=== PATIENT | male | born 1990 | race Caucasian/White ===

== ENCOUNTER 2019-01-25 15:45 | Emergency (ER) | payer SELFPAY ==
--- NOTE | 2019-01-25 15:48 | ED Physician Documentation ---
Low Back Pain - HISTORIAN Historian: patient - HPI Stated Complaint: low back pain Chief Complaint: Low Back Pain/ Injury History: back pain Onset: days ago (30) Duration: continues in ED Recent Injury: No Where: work (first pain) Other Injuries: back Severity: moderate Quality: similar- prior back pain (muscle pain he states ) Associated Symptoms: denies: fever, chills, sweating, constipation, incontinence, nausea, vomiting, problems urinating, difficulty walking, light- headedness, dizziness, numbness, weakness Worsened By:: movement to RT flexion, movement to LT flexion Relieved By: nothing Further Comments: yes (he states about one month ago he had back pain at work. He notes that he was treated at [place] and the CT per his report showed muscle strain. He has had no new injury and pain is the same he is almost out of flexeril. When he was taking the flexeril regularly he was having less pain. He has no loss of control of bowel or bladder. He does have narcotic pain meds at home. He did try OTC ibuprofen today) - ROS CONST: no problems - PAST HX Past History: back pain Allergies/Adverse Reactions: Allergies Allergy/AdvReac Type Severity Reaction Status Date / Time codeine Allergy No Reaction Verified 01/25/19 16:00 Home Medications: Ambulatory Orders Medication Instructions Recorded Cyclobenzaprine HCl [Flexeril] 10 mg PO TID PRN 01/25/19 - SOCIAL HX Smoking History: non-smoker Alcohol Use: none Drug Use: marijuana - FAMILY HX Family History: none - VITAL SIGNS Vital Signs: Vital Signs Temp Pulse Resp BP Pulse Ox 104/66 09/30/18 20:25 - REVIEWED ASSESSMENTS Nursing Assessment Reviewed: Yes Vitals Reviewed: Yes Progress - Progress Progress: 1604: Discussed with pt this is a current treatment and next step would be follow up with PCP and possible MRI. He is aware. No new injury no new symptoms. He is almost out of his flexeril DG Low Back Pain/Injury - Physical Exam General Appearance: no acute distress, alert EENT: eye inspection normal Neck: non-tender Resp/CVS: chest non-tender, breath sounds nml, heart sounds nml, no resp. distress, lungs clear, reg. rate & rhythm Abdomen: non-tender Back: muscle spasm (tenderness bilaterally lower back no radiation ) Straight Leg Raising: Negative Left, Negative Right Neuro/Psych: oriented x3 Skin: warm/dry, normal color Extremities: non-tender Discharge Clincal Impression: Low back pain Qualifiers: Chronicity: acute Back pain laterality: bilateral Sciatica presence: without sciatica Qualified Code(s): M54.5 - Low back pain Referrals: Primary Doctor,No [Primary Care Provider] - 2 Days Comments: 1. OTC meds as directed as needed for low back pain 2. Flexeril 10 mg take 1 by mouth every 8 hours as needed for pain 3. Follow Up with a PCP for management of pain 4. Return to ER for any increased concerns referral to pain DG Condition: Stable Disposition: 01 HOME, SELF-CARE Decision to Admit: NO Date of Decison to Admit: 01/25/19 Decision Time: 16:11
[2019-01-25 16:07] VITALS: BP 117/76
== END 2019-01-25 16:13 | disposition home or self-care (01) ==
LOC: ED 15:45
DX: M54.41 Lumbago with sciatica, right side (principal); M54.42 Lumbago with sciatica, left side
CPT/HCPCS: 99282; 99283

== ENCOUNTER 2019-03-30 19:51 | Emergency (ER) | payer SELFPAY ==
[2019-03-30 20:31] VITALS: BP 123/71
[2019-03-30] MEDS ORDERED: CYCLOBENZAPRINE HCL 10 MG TABLET PO ONE (20:35)
--- NOTE | 2019-03-30 20:37 | ED Physician Documentation ---
Low Back Pain - HISTORIAN Historian: patient - HPI Stated Complaint: Left back pain Chief Complaint: Low Back Pain/ Injury History: back pain (for 3 weeks) Duration: continues in ED Recent Injury: Yes (injured at work, concrete work) Context: lifting Where: work Other Injuries: other (none) Severity: moderate Quality: other (aching, throbbing) Associated Symptoms: denies: fever, chills Worsened By:: denies: other (movement. Has been lying on couch for week and a half. Ibuprofen 600 mg q7-8 hours. Seen twice at [facility] with x-rays and meds. Seen at urgent care, all with diagnosis of muscle strain. Fired from job. ) - ROS CONST: no problems MS/SKIN/LYMPH: back pain - PAST HX Past History: other (asthma, left tibia fx) Surgeries/Procedures: none Allergies/Adverse Reactions: Allergies Allergy/AdvReac Type Severity Reaction Status Date / Time codeine Allergy No Reaction Verified 01/25/19 16:00 Home Medications: Ambulatory Orders Medication Instructions Recorded NK 03/30/19 - SOCIAL HX Smoking History: cigarettes, other (14 pack year HX) Alcohol Use: occasionally Drug Use: marijuana - FAMILY HX Family History: other (PGM with breast cancer. [facility]. M with DM 2) - VITAL SIGNS Vital Signs: Vital Signs Temp Pulse Resp BP Pulse Ox 96 H 18 123/71 99 03/30/19 19:51 03/30/19 19:51 03/30/19 19:51 03/30/19 19:51 - REVIEWED ASSESSMENTS Nursing Assessment Reviewed: Yes Vitals Reviewed: Yes Progress - Progress Progress: Given 10 mg flexeril po in ER. Given script for #14 flexeril 10 mg to be taken 10 mg at HS. Explaned importance of movement, posture. OK to add 1000 mg tylenol TID ED Results Lab/Radiology - Orders Orders: ED Orders Category Date Time Status Cyclobenzaprine HCl [Flexeril] Med 03/30/19 20:35 Discontinued 10 mg PO NOW ONE Low Back Pain/Injury - Physical Exam General Appearance: no acute distress, alert EENT: eye inspection normal Neck: painless ROM Resp/CVS: no resp. distress Back: muscle spasm (left lumbar paraspinous area). No: vertebral point- tendernes Straight Leg Raising: Negative Left, Negative Right Neuro/Psych: motor nml, sensation nml, reflexes nml (can plantar and dorsiflex 1st toes against resistance) Skin: warm/dry, normal color Extremities: other (ataxic gait, limping) Discharge Clincal Impression: Low back pain Referrals: Primary Doctor,No [Primary Care Provider] - 2 Days Condition: Good Disposition: 01 HOME, SELF-CARE Decision to Admit: NO Decision Time: 20:45
== END 2019-03-30 20:42 | disposition home or self-care (01) ==
LOC: ED 19:51
DX: M54.5 Low back pain (principal)
CPT/HCPCS: 99282; 99283